=== PATIENT | male | born 1940 | race Caucasian/White ===

== ENCOUNTER 2022-08-21 16:52 | Emergency (ER) | payer MEDICARE, SELFPAY ==
[2022-08-21] VITALS (11 sets, daily range): BP systolic 146–156; BP diastolic 86–92; PULSE 83–101; RESP 12–20; TEMP 36.6–37.6; O2SAT 97–99
[2022-08-21 17:30] LABS: Basophils Absolute Auto 0.1 K/mm3 (0.0-0.1); Basophils Percent Auto 0.4 % (0.2-1.2); Eosinophils Percent Auto 0.4 % (0-4.4); Hematocrit 48.5 % (42.0-52.0); Hemoglobin 16.6 g/dL (14.0-18.0); Immature Granulocyte Absolute 0.03 K/mm3 (0.00-0.031); Immature Granulocyte Percent A 0.3 % (0-0.5); Lymphocytes Absolute Auto 2.78 K/mm3 (0.9-3.2); Lymphocytes Percent Auto 24.4 % (18.3-44.2); Mean Corpuscular HGB Conc 34.2 g/dl (32-36); Mean Corpuscular Hemoglobin 32.1 pg (26-34); Mean Corpuscular Volume 93.8 fl (80-100); Mean Platelet Volume 9.6 fl (7.4-10.4); Monocytes Absolute Auto 1.1 K/mm3 (0.1-0.6); Monocytes Percent Auto 9.3 % (2.6-8.5); Neutrophils Absolute Auto 7.4 K/mm3 (1.3-6.7); Neutrophils Percent Auto 65.2 % (45.5-73.1); Platelet Count Result 226 k/mm3 (150-375); Red Blood Count 5.17 M/mm3 (4.6-6.20); Red Cell Distribution Width 13.3 % (11.5-14.5); White Blood Count 11.4 K/mm3 (4.5-10.0)
[2022-08-21 17:43] LABS: Alanine Aminotransferase 23 U/L (6-50); Albumin Level 4.9 g/dL (3.5-5.1); Alkaline Phosphatase 79 U/L (38-126); Anion Gap 12 mmol/L (8-16); Aspartate Amino Transferase 35 U/L (17-59); Blood Urea Nitrogen 10 mg/dL (9-20); Calcium 8.9 mg/dL (8.4-10.2); Carbon Dioxide 22 mmol/L (22-30); Chloride 100 mmol/L (98-107); Estimated CRCL calculation 72 ml/min; Estimated Glomerular Filt Rate > 60; Glucose 119 mg/dL (65-110); Potassium 3.8 mmol/L (3.4-5.0); Sodium 134 mmol/L (137-145)
[2022-08-21 18:25] LABS: Bacteria Urine None Seen /hpf; Non Pathogenic Casts 0-2; RBC Urine >100 /hpf (0-2); Squamous Epithelial Cell Urine None seen /hpf (Few)
[2022-08-21 18:35] LABS: Appearance Urine Slightly Cloudy (Clear); Bilirubin Urine 1+ (Negative); Blood Urine 3+ (Negative); Color Urine Red (Yellow); Glucose Urine UA Negative (Negative); Ketones Urine Trace mg/dL (Negative); Leukocyte Esterase Ur Negative LEU/UL (Negative); Nitrate Urine Negative (Negative); Protein Urine 3+ mg/dL (Negative); Urobilinogen Urine 0.2 mg/dL (<2.0)
--- NOTE | 2022-08-21 18:41 | ED.MALEGU ---
HPI - Male Genitourinary General Chief complaint: Urogenital-Male <Betsy Lemus PA-C - Last Filed: 08/22/22 02:29> Stated complaint: cath clogged. no output since 1200 <Betsy Lemus PA-C - Last Filed: 08/22/22 02:29> Time Seen by Provider: 08/21/22 17:07 <AUBREE Good Last Filed: 08/22/22 02:29> Source: patient <AUBREE Good Last Filed: 08/22/22 02:29> Mode of arrival: ambulatory <AUBREE Good Last Filed: 08/22/22 02:29> Limitations: no limitations <AUBREE Good Last Filed: 08/22/22 02:29> History of Present Illness HPI Narrative: Patient is an 81-year-old male who presents to the ED with report of urinary catheter issue. Patient's family at bedside assisted in providing information. They report patient was seen [facility] yesterday and had a cystoscopy and bladder biopsy performed due to hematuria and abnormal CT finding of bladder. He experienced gross hematuria and urinary retention this morning. He was seen at [facility] and had a Gillespie catheter placed. Patient reports he was doing fine at first, but had not urinated since noon today. He began having significant lower abdominal/suprapubic pressure and feeling of needing to urinate, which prompted his presentation. Patient denies any nausea, vomiting, fevers, chills. Patient has follow-up with urology, Dr. Baldwin, on 09/03. <AUBREE Good Last Filed: 08/22/22 02:29> Related Data Home medications: Home Medications Medication Instructions Recorded Confirmed allopurinol 100 mg tablet 100 mg DAILY 08/21/22 08/21/22 amlodipine 10 mg-benazepril 20 mg 1 cap DAILY 08/21/22 08/21/22 capsule bisoprolol fumarate 10 mg tablet 10 mg DAILY 08/21/22 08/21/22 famotidine 40 mg tablet 40 mg DAILY 08/21/22 08/21/22 ibuprofen 600 mg tablet 600 mg PO Q6H PRN Pain, Moderate 08/21/22 08/21/22 pravastatin 20 mg tablet 20 mg PO DAILY 08/21/22 08/21/22 <Betsy Lemus PA-C - Last Filed: 08/22/22 02:29> Allergies/Adverse reactions: Allergies Allergy/AdvReac Type Severity Reaction Status Date / Time No Known Allergies Allergy Verified 08/21/22 17:46 <Betsy Lemus PA-C - Last Filed: 08/22/22 02:29> Review of Systems Review of Systems: CONSTITUTIONAL: Denies fever, chills, or sweats. CARDIOVASCULAR: Denies chest pain. RESPIRATORY: Denies dyspnea. GASTROINTESTINAL: See HPI. GENITOURINARY: See HPI. SKIN: Denies rash or itching. MUSCULOSKELETAL: Denies back pain, joint pain, or myalgia. <Betsy Lemus PA-C - Last Filed: 08/22/22 02:29> All systems reviewed & are unremarkable except as noted in HPI and below <Betsy Lemus PA-C - Last Filed: 08/22/22 02:29> PMFSH Past Medical History Medical History: Medical History GERD (gastroesophageal reflux disease) Gout HLD (hyperlipidemia) HTN (hypertension) <Betsy Lemus PA-C - Last Filed: 08/22/22 02:29> Surgical History Surgical History: Surgical History History of cystoscopy <Betsy Lemus PA-C - Last Filed: 08/22/22 02:29> Social History Social History: Social History Smoking status: Never smoker Alcohol intake: current <Betsy Lemus PA-C - Last Filed: 08/22/22 02:29> Exam Narrative: GENERAL: Well appearing, well-nourished, non-toxic, in no acute distress. HEAD: Normocephalic, atraumatic. NECK: Supple. No adenopathy, no masses. RESPIRATORY: Airway patent, respirations nonlabored. Clear to auscultation bilaterally, no rales, rhonchi, wheezing. CARDIOVASCULAR: Regular rate and rhythm without murmurs, rubs, or gallops. Radial pulses 2+ and equal bilaterally. ABDOMINAL: Soft, minimal tenderness throughout low
[2022-08-21 18:42] LABS: Add Urine Microscopic? YES
[2022-08-21] MEDS: CEPHALEXIN 500 MG CAPSULE PO (20:24)
== END 2022-08-21 20:43 | disposition home or self-care (01) ==
PROVIDERS: Emergency Provider Physician Assistant; PCP Urology
DX: T83.091A Other mechanical complication of indwelling urethral catheter, initial encounter (principal); R33.9 Retention of urine, unspecified; R31.0 Gross hematuria; E78.5 Hyperlipidemia, unspecified; I10 Essential (primary) hypertension; K21.9 Gastro-esophageal reflux disease without esophagitis; M10.9 Gout, unspecified; Z79.1 Long term (current) use of non-steroidal anti-inflammatories (NSAID); Y84.6 Urinary catheterization as the cause of abnormal reaction of the patient, or of later complication, without mention of misadventure at the time of the procedure
CPT/HCPCS: 36415; 51702; 80053; 81001; 85025; 87086; 99283; A9270